=== PATIENT | female | born 1990 | race Caucasian/White ===

== ENCOUNTER 2024-09-22 17:20 | Emergency (ER) | payer OTHER, SELFPAY ==
[2024-09-22 17:22] VITALS: BP 116/79
[2024-09-22 17:42] LABS: % Basophils 0.6 % (0-2); % Eosinophils 1.4 % (0-6); % Immature Granulocytes 0.1 % (0-0.5); % Monocytes 8.5 % (1.7-9.3); % Neutrophils 56.4 % (42.2-75.2); Absolute Basophils 0.1 10^3/uL (0-0.2); Absolute Eosinophils 0.1 10^3/uL (0-0.7); Absolute Lymphocytes 2.7 10^3/uL (1.2-3.4); Absolute Monocytes 0.7 10^3/uL (0.1-0.6); Absolute Neutrophils 4.5 10^3/uL (1.4-6.5); Hematocrit 39.6 % (37.0-47.0); Hemoglobin 13.6 g/dL (12.0-16.0); Mean Corp Hgb Conc. 34.3 g/dL (33.0-37.0); Mean Corpuscular Hgb 30.8 pg (27.0-31.0); Mean Corpuscular Volume 89.8 fL (81.0-99.0); Mean Platelet Volume 10.8 fL (7.4-10.4); Nucleated Red Blood Cells % 0 %; Platelet Count 236 10^3/uL (130-400); Red Blood Cell Count 4.41 10^6/uL (4.20-5.40); Red Cell Dist. Width 12.3 % (11.5-14.5)
[2024-09-22 17:56] LABS: HCG, Serum Qualitative Screen Negative
[2024-09-22 18:00] LABS: ALT (SGPT) 25 U/L (0-35); AST (SGOT) 21 U/L (14-36); Albumin 4.7 g/dl (3.5-5.0); Alkaline Phosphatase 39 U/L (38-126); Blood Urea Nitrogen 15 mg/dl (7-17); Calcium 8.9 mg/dl (8.4-10.2); Carbon Dioxide 27 mmol/L (22-30); Chloride 108 mmol/L (98-107); Glucose 86 mg/dl (70-99); Potassium 4.2 mmol/L (3.5-5.1); Sodium 141 mmol/L (135-145); Total Bilirubin 1.1 mg/dl (0.2-1.3); Total Protein 7.9 g/dl (6.3-8.2); eGFR > 60.00
[2024-09-22 18:06] LABS: Troponin I < 0.012 ng/ml
--- NOTE | 2024-09-22 19:58 | ED.GENMED ---
History of Present Illness
General
Chief Complaint: Numbness
Source: patient
Exam Limitations: none
Time Seen by Provider: 09/22/24 19:42
History of Present Illness
History of Present Illness:
This is a 34-year-old female who presents with concerns that her arms sometimes go numb when she lays on her back. No motor weakness. Patient states that she tried putting an extra pillow behind her neck. Patient denies any pain or discoloration
of the hands. Patient also states that during the day with activity and exercise she feels normal and has no symptoms. She only notices it when she wakes up with her hands numb from sleeping. She denies having her hands above her head when she
lays. She did not try any of the positions. No chest pain. No back pain. No vision changes. Admits she has been getting deep tissue massage with acupuncture and wonders if it has been making it worse. The patient states that a while back her
gave her a tight hug and cracked her lower back and she was wondering if this was related because she had pain in her mid to lower back at that time. Patient denies neck pain. Denies headache.
Past History
Past History
ED Past Medical History: None
ED Past Surgical History: None
Phy Exam
Physical Exam
Physical Exam:
CONSTITUTIONAL Patient alert and oriented to person, place and time. Well-appearing. Vital signs reviewed.
HEAD atraumatic, normocephalic.
EYES eyelids normal to inspection, Extraocular muscles intact, Conjunctiva normal, Sclera normal.
NECK normal range of motion, Trachea midline, no jugular venous distention. No deformities. No midline tenderness
RESPIRATORY CHEST No respiratory distress noted, Chest expansion equal, Bilateral breath sounds clear.
CARDIOVASCULAR regular rate and rhythm, Heart sounds normal.
ABDOMEN No distention.
BACK normal inspection, no obvious deformities, no paraspinal tenderness, no midline tenderness
UPPER EXTREMITY range of motion normal, Motor strength normal, no cyanosis, no edema. Normal bilateral distal cap refill digits. Normal radial and ulnar pulses bilaterally
LOWER EXTREMITY range of motion normal, Motor strength normal, no cyanosis, no edema.
NEURO Speech normal, No focal motor deficits, Emani coma scale 15, Memory normal, Cranial Nerves intact to screening exam. Normal [id number]. No pronator drift.
SKIN skin warm, dry, and normal in color.
Course
Orders/Labs/Results
Orders:
Orders
09/22/24 17:25
Electrocardiogram (*1) Urgent
Reason for Study: Chest Pain
EKG- Treatment ONCE
09/22/24 17:26
Test Result ONCE
09/22/24 17:34
Complete Blood Count/With Diff Urgent
Comprehensive Metabolic Panel Urgent
HCG, Serum Qualitative Screen Urgent
Comment: Notify provider if positive test present
Troponin I Urgent
Abnormal Lab Results
09/22/24
17:34
MPV 10.8 H fL
(7.4-10.4)
Absolute Monos (auto) 0.7 H 10^3/uL
(0.1-0.6)
Chloride 108 H mmol/L
(98-107)
09/22/24 17:34
09/22/24 17:34
Vital Signs
Initial and Last Documented VS:
Initial Vital Signs
Temp Pulse Resp BP Pulse Ox
98.1 F 79 16 116/79 99
09/22/24 17:22 09/22/24 17:22 09/22/24 17:22 09/22/24 17:22 09/22/24 17:22
Last Documented Vital Signs
Temp Pulse Resp BP Pulse Ox
98.1 F 79 16 116/79 99
09/22/24 17:22 09/22/24 17:22 09/22/24 17:22 09/22/24 17:22 09/22/24 17:22
MDM/Problems Addressed
Differential Diagnosis Includes:
Thoracic outlet syndrome, herniated disc, osteoarthritis of the cervical spine, dissection
MDM/Problems Addressed:
Positional neuropathy
*Pulse Oximetry
Patient hypoxic: no
*EKG
Interpreted by ED Provider?: Yes
Interpretation: normal
Rate: normal
Rhythm: sinus
[place]: normal axis
QRS Pattern: normal QRS
Ischemia: no ischemia
*Critical Care Note
Total Time (30-74mins, 75-104mins- exclusive of procedures): Not Applicable
Data Reviewed
Source: patient
Further Testing Considered But Not Given:
Considered imaging of the C-spine but no other neck symptoms or C-spine symptoms.. Normal neurologic assessment
Patient Management
Escalation/DeEscalation of care consider admission/obs:
Patient appears well and has normal neurologic assessment. Her symptoms are only when she lays back. I laid her back during exam and did not produce any symptoms. She has normal distal cap refill and radial and ulnar pulses. I do not specked
thoracic outlet syndrome as symptoms of bilateral. Not suspect herniated disc as her symptoms are bilateral. Recommended change her positioning while sleeping but outpatient follow-up with PCP which is already planned
ED Attending Note
-
Portions of this chart may have been created with voice recognition software.� Occasional wrong word or��sound alike� substitutions may have occurred due to the inherent limitations of voice recognition software.
Discharge Plan
Departure
Patient Disposition: Home (Routine Discharge)
Date of Disposition: 09/22/24
Time of Disposition: 19:58
Patient with high blood pressure during this ER visit?: No
Discharge Problem:
Neuropathy
Instructions: Paresthesia (DC)
Referrals:
PRIVATE,PHYSICIAN [Active] -
Activity Restrictions/Additional Instructions:
Please see your doctor follow-up as planned. Please consider repositioning yourself at night and consider a roll under your neck if you do lay on your back. Return immediately for motor weakness, sensory changes during the day with activity,
discoloration of the hands or fingers or any other concerns. If symptoms persist, please consider an MRI of your back.
Interventions
Interventions:
*Risk Screen - Suicide Last Done: 09/22/24 17:22
*General Assessment Last Done: 09/22/24 17:22
*Neglect/Abuse Screening Last Done: 09/22/24 17:22
*ED- Fall Risk Assessment Last Done: 09/22/24 19:45
*ED COVID-19 Vaccine History Last Done: 09/22/24 19:45
ED- Neurological Assessment Last Done: 09/22/24 19:45
Discharge Date and Time
Print Language: GEORGIAN
== END 2024-09-22 20:11 | disposition home or self-care (01) ==
LOC: EMR 17:20
PROVIDERS: Emergency Medicine; EMERGENCY PHYSICIAN Emergency Medicine; FAMILY PHYSICIAN Internal Medicine
DX: G62.9 Polyneuropathy, unspecified (principal)
CPT/HCPCS: 99284; 80053; 84484; 84703; 85025; 93005